=== PATIENT | male | born 1975 | race African-American/Black ===

== ENCOUNTER 2020-06-11 03:51 | Emergency (ER) | payer SELFPAY ==
[2020-06-11 03:53] VITALS: BP 165/94; PULSE 74; RESP 16; TEMP 36.7; O2SAT 100
--- NOTE | 2020-06-11 03:55 | ED.WOUNDLAC ---
HPI - Wound/Laceration General Chief Complaint: Wound/Laceration Stated Complaint: LAC TO FINGER Time Seen by Provider: 06/11/20 03:54 Source: patient Mode of arrival: EMS Limitations: no limitations History of Present Illness HPI narrative: Patient is a 45-year-old who presents for evaluation of laceration to right second digit. Patient is right-hand dominant. He denies numbness or tingling. No difficulty with movement. He denies any pain. He reports mild active bleeding. Patient injured his finger at the [employer], place of work this evening. He states that his hand got trapped between a car jam and it will he was working with, causing it to sliced into his finger. Patient's wound was wrapped at work. He is not up to date on tetanus. He denies other injury. Transported via EMS. Related Data Home Medications Medication Instructions Recorded Confirmed No Home Medications 06/11/20 06/11/20 Allergies Allergy/AdvReac Type Severity Reaction Status Date / Time No Known Allergies Allergy Verified 06/11/20 04:03 Review of Systems Review of Systems: Narrative: SKIN: Reports right finger laceration MUSCULOSKELETAL: Denies pain with movement Neuro: Denies numbness PMFSH Past Medical History Medical History (Updated 06/11/20 @ 04:19 by Meg Licona MD) Hypertension Social History Social History (Updated 06/11/20 @ 03:56 by Meg Licona MD) Alcohol intake: current Substance use: current Substance use type: marijuana Gender identity (if verbalized by the patient): Male Exam Narrative: Exam Narrative: GENERAL: Awake, alert, conversant HEAD: Normocephalic, atraumatic. EYES: PERRLA and EOMI. ENT: Nares clear, no rhinorrhea or epistaxis. Mucous membranes moist. NECK: Supple. CHEST: No respiratory distress, breathing even and non labored HEART: Regular rate, sinus rhythm ABDOMEN:Non distended, non tender EXTREMITIES: Normal range of motion. No edema. SKIN: Warm, dry, 2 cm superficial, linear laceration to the lateral aspect of the second digit, proximal phalanx. No bone identified. Mild muscle involvement. Does not overlying the joint space. Intact sensation ulnar, median, radial nerve distribution. Radial pulse 2+. Intact flexion and extension at the DIP and PIP without limitation. Capillary refill less than 3 seconds. NEURO:No focal deficits. Alert and oriented x3 Course Vital Signs Vital signs: Vital Signs Temperature 36.7 C 06/11/20 03:53 Pulse Rate 74 06/11/20 03:53 Respiratory Rate 16 06/11/20 03:53 Blood Pressure 165/94 H 06/11/20 03:53 Pulse Oximetry 100 06/11/20 03:53 Temperature 36.7 C 06/11/20 03:53 Pulse Rate 74 06/11/20 03:53 Respiratory Rate 16 06/11/20 03:53 Blood Pressure 165/94 H 06/11/20 03:53 Pulse Oximetry 100 06/11/20 03:53 Procedures Laceration Laceration 1: Date: 06/11/20 Time: 03:57 Site: hand Side (If applicable): right Size (cm): 2 Description: linear Depth: involves muscle layer Local Anesthetic: lidocaine 1% Amount of anesthesia used (mL): 3 Pre-repair: wound explored and irrigated ====== Skin Level ====== Skin layer closed with: prolene Size (cm): 5-0 Number of sutures: 5 Technique: simple, interrupted ====== Subcutaneous Layer ====== ====== Muscle Layer ====== ====== Tendon Layer ====== MDM - Wound/Laceration MDM Narrative Medical decision making narrative: Patient presented for evaluation of laceration. Pt is neurovascularly intact, with minimal active bleeding. No foreign body or evidence of osseous injury. Wound irrigated extensively. Tetanus updated. Pt wound sutured without complication. Pt then discharged home with wound care instructions. Differential Diagnosis Differential diagnosis: Likely laceration Discharge Plan Discharge Clinical Impression: Laceration Patient Dispositi
[2020-06-11] MEDS: TETANUS,DIPHTHERIA,AC PERTUSSIS ADULT (0.5 ML) BOOSTRIX IM (04:20)
== END 2020-06-11 04:25 | disposition home or self-care (01) ==
LOC: ANHED 04:03
PROVIDERS: Emergency Provider Emergency Medicine
DX: S61.210A Laceration without foreign body of right index finger without damage to nail, initial encounter (principal); X58.XXXA Exposure to other specified factors, initial encounter; I10 Essential (primary) hypertension; Z23 Encounter for immunization
CPT/HCPCS: 12001; 90471; 90715; 99282